=== PATIENT | male | born 1990 | race African-American/Black ===

== ENCOUNTER 2016-07-26 16:02 | Day surgery (SDC) | payer BC, OTHER ==
[2016-07-26] VITALS (9 sets, daily range): BP systolic 108–131; BP diastolic 56–82; PULSE 59–74; TEMP 98.6
[~2016-07-26] VITALS: Ht 177.8 cm; Wt 70.5 kg
[2016-07-26 16:45] LABS: BASO % 0.2 % (0.0-2.0); EOS % 0.1 % (0-4.0); GRAN # 11.6 (1.4-6.5); GRAN % 88.2 % (42.2-75.2); HEMATOCRIT 47.1 % (42.0-52.0); HEMOGLOBIN 16.5 g/dl (13.5-18.0); LYMPH # 0.7 (1.2-3.4); LYMPH % 5.1 % (20.0-51.0); MEAN CELL VOLUME 88 fl (80.0-100.0); MEAN CORPUSCULAR HEMOGLOBIN 31 pg (27.0-31.0); MEAN CORPUSCULAR HGB CONC 35 g/dl (33.0-37.0); MEAN PLATELET VOLUME 10.1 fl (7.4-10.4); MONO # 0.8 (0.1-0.6); PLATELET COUNT 279 K/mm3 (130-400); RED BLOOD COUNT 5.38 M/mm3 (4.20-5.60); REDCELL DISTRIBUTION WIDTH-CV 12.2 % (11.5-14.5); WHITE BLOOD COUNT 13.2 K/mm3 (4.8-10.8)
[2016-07-26 17:00] LABS: ADJUSTED CALCIUM 8.8 mg/dL (8.4-10.2); ALBUMIN 5.1 gm/dL (3.5-5.0); BILIRUBIN,TOTAL 1.3 mg/dL (0.0-1.0); C-REACTIVE PROTEIN 1.2 mg/dL (0.0-0.9); CALCIUM 9.7 mg/dL (8.4-10.2); CREATININE, serum 0.79 mg/dL (0.66-1.25); POTASSIUM 3.7 mmol/L (3.4-5.0); TOTAL PROTEIN 8.2 gm/dL (6.4-8.2)
[2016-07-27 06:00] VITALS: BP 110/48; PULSE 53; TEMP 98.4
[2016-07-27 09:11] VITALS: BP 129/63; PULSE 66; TEMP 98.3
[2016-07-27 13:58] VITALS: BP 133/67; PULSE 69; TEMP 98.2
[2016-07-27] MEDS ORDERED: NORCO 325 MG-7.1 TAB PO (14:00)
== END 2016-07-27 14:10 | disposition home or self-care (01) ==
LOC: COL.ER 16:02 → SDCO 18:05 → SURG 18:14 → SDCO 07-27 14:10
PROVIDERS: Emergency Medicine
DX: K35.80 Unspecified acute appendicitis (principal)
CPT/HCPCS: OP; J1170; J1885; J1956; J2405; J2550; J2704; J3010; J7030; Q9967

== ENCOUNTER → 2016-11-28 | Outpatient (CLI) | payer BC ==
[~2016-11-28] MED LIST: NORCO 325 MG-7.1 TAB PO
== END ==
LOC: COL.RAD 12:42
DX: R10.11 Right upper quadrant pain (principal)

== ENCOUNTER 2018-07-02 20:30 | Emergency (ER) | payer BC ==
[~2018-07-02] VITALS: Ht 177.8 cm; Wt 68.2 kg
[2018-07-02 20:33] VITALS: TEMP 98.8
[2018-07-02 21:03] LABS: BASO % 0.1 % (0.0-2.0); EOS # 0.2 (0.0-0.7); EOS % 2.6 % (0-4.0); GRAN # 4.3 (1.4-6.5); GRAN % 55.6 % (42.2-75.2); HEMATOCRIT 44.3 % (42.0-52.0); HEMOGLOBIN 15.2 g/dl (13.5-18.0); LYMPH # 2.7 (1.2-3.4); LYMPH % 34.1 % (20.0-51.0); MEAN CELL VOLUME 89 fl (80.0-100.0); MEAN CORPUSCULAR HEMOGLOBIN 31 pg (27.0-31.0); MEAN CORPUSCULAR HGB CONC 34 g/dl (33.0-37.0); MEAN PLATELET VOLUME 9.7 fl (7.4-10.4); MONO # 0.6 (0.1-0.6); MONO % 7.3 % (1.7-9.3); PLATELET COUNT 314 K/mm3 (130-400); RED BLOOD COUNT 4.97 M/mm3 (4.20-5.60); REDCELL DISTRIBUTION WIDTH-CV 12.1 % (11.5-14.5)
[2018-07-02 21:14] LABS: ALANINE AMINOTRANSFERASE 27 U/L (21-72); ALBUMIN 4.9 gm/dL (3.5-5.0); ALKALINE PHOSPHATASE 63 U/L (50-136); ANION GAP 13 mmol/L (7-16); AST,SGOT 51 U/L (15-37); BILIRUBIN,TOTAL 0.6 mg/dL (0.0-1.0); BLOOD UREA NITROGEN 19 mg/dL (9-20); CALCIUM 9.6 mg/dL (8.4-10.2); CARBON DIOXIDE 28 mmol/L (22-30); CHLORIDE 100 mmol/L (98-107); CREATININE, serum 0.98 (0.66-1.25); GLUCOSE 133 mg/dL (74-106); POTASSIUM 3.4 mmol/L (3.4-5.0); SODIUM 141 mmol/L (137-145); TOTAL PROTEIN 8.3 gm/dL (6.4-8.2)
[2018-07-02 21:19] LABS: ACETAMINOPHEN < 10 ug/mL (10-30); SALICYLATE < 1.0 mg/dL
[2018-07-02 22:00] VITALS: BP 131/61; PULSE 90
== END 2018-07-02 22:22 | disposition home or self-care (01) ==
LOC: COL.ER 20:30
PROVIDERS: Emergency Medicine
DX: T48.201A Poisoning by unspecified drugs acting on muscles, accidental (unintentional), initial encounter (principal); F41.9 Anxiety disorder, unspecified
CPT/HCPCS: J2060; J7030